=== PATIENT | female | born 1945 | race Caucasian/White ===

== ENCOUNTER 2017-05-19 10:44 | Emergency (ER) | payer MEDICARE, OTHER ==
[2017-05-19 11:48] LABS: BASOPHIL# 0.2 X 10^3uL (0.0-0.1); EOSINOPHILS 0.2 % (0.0-6.0); HEMATOCRIT 46.7 % (36.0-48.0); HEMOGLOBIN 15.9 g/dL (12.0-16.0); LYMPHOCYTES 6.9 % (20.0-40.0); LYMPHOCYTES# 0.8 X 10^3uL (0.8-3.8); MEAN CELL VOLUME 89.9 fL (80.0-100.0); MEAN CORPUS. HGB CONCENTRATION 34.1 g/dL (32.0-36.0); MEAN CORPUSCULAR HEMOGLOBIN 30.7 pg (29.0-35.0); MEAN PLATELET VOLUME 9.2 fL (7.4-10.4); MONOCYTES 5.8 % (2.0-10.0); MONOCYTES# 0.7 X 10^3uL (0.2-1.0); NEUTROPHILS 85.1 % (54.0-75.0); NEUTROPHILS# 10.2 X 10^3uL (2.6-6.7); RED BLOOD COUNT 5.19 X 10^6uL (4.20-6.10); WHITE BLOOD COUNT 11.9 X 10^3uL (3.9-10.7)
[2017-05-19 11:59] LABS: A/G RATIO 1.4; ALBUMIN 4.5 g/dL (3.5-5.0); BILIRUBIN, TOTAL 0.8 mg/dL (0.2-1.3); CALCIUM 9.5 mg/dL (8.4-10.2); POTASSIUM 4.3 mmol/L (3.5-5.1); TOTAL PROTEIN 7.7 g/dL (6.3-8.2)
--- NOTE | 2017-05-19 12:19 | CT REPORT ---
HISTORY: Fell, hit head, confusion COMPARISON: None. TECHNIQUE: Axial non-contrast images obtained from skull vertex through foramen magnum. Dose reduction technique was utilized. FINDINGS: There is moderate diffuse atrophy. Ventricular size is appropriate. There is mild patchy chronic whit e matter changes. There is no subdural or epidural collection, midline shift or mass effect. No evide nce for acute infarction. Skull is intact. Visualized sinuses are clear. IMPRESSION: Moderate diffuse atrophy. Mild patchy chronic white matter changes. No acute findings. Final Electronic Signature: This report was electronically signed by Marcel Paiz MD on 05/19/2017 12 :17 PM. mariaelena /
--- NOTE | 2017-05-19 12:38 | RADIOLOGY REPORT ---
HISTORY: Fall COMPARISON: None. FINDINGS: Two views of the right humerus obtained. There is no fracture. There is no lytic or sclerotic lesio n. There is no soft tissue swelling. There is normal alignment and mineralization. The soft tissues are unremarkable. The shoulder and elbow are grossly normal. IMPRESSION: Negative right humerus. Final Electronic Signature: This report was electronically signed by Marcel Paiz MD on 05/19/2017 12 :36 PM. mariaelena /
--- NOTE | 2017-05-19 12:38 | RADIOLOGY REPORT ---
HISTORY: Fall COMPARISON: None. FINDINGS: 1 view of the chest obtained. Heart size is normal for the portable technique. Mediastinal contours a re normal. There is mild left basilar atelectasis. No infiltrate, definite effusion or edema. No pneu mothorax. IMPRESSION: Mild left basilar atelectasis. No other acute findings noted. Final Electronic Signature: This report was electronically signed by Marcel Paiz MD on 05/19/2017 12 :35 PM. mariaelena /
--- NOTE | 2017-05-19 14:43 | ER NURSING DOCUMENTATION ---
Nurse's Notes [facility] Name:Yuni Dorman Age:71 yrs Sex:Female :1945 Arrival Date:05/19/2017 Time:10:44 Bed4 Private MD: Diagnosis:Chronic Dementia;Fall Presentation: 05/19 10:49 Presenting complaint: states: states that pt had a fall last night and st hit her right side. He put her back to bed at that time. This AM pt "collapsed (walking herself down the wall). had troubles getting up. pt only complaint is her right arm. witch has full ROM. Pt has advanced dementia. states that her mentation is baseline for her. Transition of care: Home. 10:49 Method Of Arrival: Private Vehicle st 10:49 Acuity: DIAMOND 3 st Triage Assessment: 11:00 General: Appears in no apparent distress, Behavior is cooperative. Pain: Unable to use st pain scale. when first asked about pain pt denied any. then pt stated her left arm hurt. pt states that there is pain in her right shoulder and right elbow on palpation pt has no trouble moving and using that limb. Neuro: Reports states that she is acting at her baseline for her dementia. . Cardiovascular: Capillary refill < 3 seconds Heart tones present. Respiratory: No deficits noted. GI: No deficits noted. Musculoskeletal: Parent/caregiver report the patient having rn wound care states that she had troubles getting off the floor today. Historical: - Allergies: No known drug Allergies; - Home Meds: 1. Aricept Oral 2. Aspirin Oral - PMHx: DEMENTIA; - Ebola Screening: : Patient denies exposure to infectious person. Patient denies travel to an Ebola-affected area in the 21 days before illness onset. . - Immunization history: Unable to Obtain. - Social history: Smoking status: Patient states was never smoker of tobacco. Patient/guardian denies using alcohol, marijuana. Screenin:04 Infectious Disease Risk None. Abuse screen: Denies threats or abuse. Denies injuries st from another. no reasons for suspicion noted. Nutritional screening: No deficits noted. Assessment: 12:35 General: pt resting quietly. pt still states her right arm hurts, pt declined pain meds st when offered. . 13:36 General: pt continues to rest quiwtly.. st 14:04 General: is concerned that she may fall again and that he might not be able to st get her up. . 14:10 General: pt walked without trouble. continues to express worries about her st falling, He also states that they are having troubles with showers. He feels comfortable with general care. We discussed the possibility of getting PT and OT involved at this point, . Vital Signs: 10:49 BP 126 / 76; Pulse 78; Resp 12; Temp 98.6(O); Pulse Ox 92% on R/A; Weight 63.5 kg (R); arc Height 5 ft. 8 in. (172.72 cm) (R); Pain 5/10; 11:35 Temp 98.3; st 12:59 BP 132 / 64 (auto/); st 13:00 Pulse 74; Pulse Ox 94% ; st 10:49 Body Mass Index 21.29 (63.50 kg, 172.72 cm) arc ED Course: 10:47 Patient arrived in ED. em3 10:49 Sue Bass, RN is Primary Nurse. st 10:[address] 11:05 Valuables Remains with patient Patient has correct armband on for positive st identification. Bed in low position. Side rails up X2. Adult w/ patient. Warm blanket given. 11:21 Sami Duckworth MD is Attending Physician. be 11:37 Assisted to bathroom. pt attempted to urinate but was unable to do so. st 11:40 Inserted peripheral IV: 20 gauge in right antecubital area and blood collected. arc 11:[address] mr 13:55 Straight cath inserted Specimen obtained. st 14:23 Anatoly Zuniga MD is Referral Physician. be Administered Medications: 12:22 Drug: NS 0.9% 1000 ml; Route: IV; Rate: bolus; Site: right antecubital; st 14:41 Follow up: IV Status: Completed infusion; IV Intake: 800ml st Point of Care Testing: Urine Dip: 13:58 pH: 5.0; ; Specific [place]: 1.025; Ketones: Negative; Glucose: Negative; Protein: cb Negative; Leukocytes: Negative; Nitrite: Negative ; Blood: Negative; Bilirubin: Negative ; Urobilinogen: Normal Intake: 14:41 IV: 800ml; Total: 800ml. st Outcome: 14:24 Discharge ordered by . be 14:40 Discharged to home ambulatory. st 14:40 Condition: improved 14:40 Discharge instructions given to patient, significant other, Instructed on discharge instructions, follow up and referral plans. 14:41 [address] ED[address] st 07 17:04 Discharge F/U Call: Spoke with: spouse with permission of patient. Did your discharge lc instructions answer all of your questions? yes Have you made a f/u appointment? yes Overall Care on a scale of 1-10 with 10 being the best care, you rate our care as: Other comments: DOING BETTER, GETTING HOME CARE HELP TOMORROW Signatures: Martina Durán, RN RN Sue Wharton, RN Carolina Barba RN RN Sami Moreira MD MD be Meiklejohn, Julien Jordana Banda, Schuyler Up mr
--- NOTE | 2017-05-19 14:45 | ER PHYSICIAN DOCUMENTATION ---
Physician Documentation [facility] Name:Yuni Dorman Age:71 yrs Sex:Female :1945 Arrival Date:05/19/2017 Time:10:44 Bed4 Private MD: Sami Ortega Disposition: 05/19/17 14:24 Discharged to Home/Self Care. Impression: Chronic Dementia, Fall. - Condition is Fair. - Discharge Instructions: DEMENTIA, Any Type, FALL PREVENTION. - Medical Reconciliation form form. - Follow up: Anatoly Zuniga MD; When: 2 - 3 days; Reason: Continuance of care. - Problem is chronic. - Symptoms are unchanged. HPI: 05/19 15:26 This 71 yrs old Female presents to ER via Private Vehicle with unknown be complaint. 15:26 Details of fall: The patient fell from an upright position, while walking, last night be got out of bed to use restroom. Onset: The symptom(s)/episode began/occurred acutely. Associated injuries: The patient sustained injury to the head, contusion, right arm. Associated signs and symptoms: Pertinent positives: memory problems, weakness, Pertinent negatives: chest pain, headache, vomiting, Loss of consciousness: the patient experienced no loss of consciousness. The patient has experienced similar episodes in the past, today's symptoms are similar, frequent falls. Historical: - Allergies: No known drug Allergies; - Home Meds: 1. Aricept Oral 2. Aspirin Oral - PMHx: DEMENTIA; - Ebola Screening: : Patient denies exposure to infectious person. Patient denies travel to an Ebola-affected area in the 21 days before illness onset. . - Immunization history: Unable to Obtain. - Social history: Smoking status: Patient states was never smoker of tobacco. Patient/guardian denies using alcohol, marijuana. ROS: 15:26 MS/extremity: Positive for pain, of the right arm, Negative for deformity. be 15:26 Neuro: Positive for headache, memory problems. 15:26 All other systems are negative. Exam: 15:26 Constitutional: This is a well developed, well nourished patient who is awake, alert, be and in no acute distress. Head/Face: Normocephalic, atraumatic. Eyes: Pupils equal round and reactive to light, extra-ocular motions intact. Lids and lashes normal. Conjunctiva and sclera are non-icteric and not injected. Cornea within normal limits. Periorbital areas with no swelling, redness, or edema. ENT: Nares patent. No nasal discharge, no septal abnormalities noted. Tympanic membranes are normal and external auditory canals are clear. Oropharynx with no redness, swelling, or masses, exudates, or evidence of obstruction, uvula midline. Mucous membranes moist. Neck: Trachea midline, no thyromegaly or masses palpated, and no cervical lymphadenopathy. Supple, full range of motion without nuchal rigidity, or vertebral point tenderness. No Meningismus. Chest/axilla: Normal chest wall appearance and motion. Nontender with no deformity. No lesions are appreciated. Cardiovascular: Regular rate and rhythm with a normal S1 and S2. No gallops, murmurs, or rubs. Normal PMI, no JVD. No pulse deficits. Respiratory: Lungs have equal breath sounds bilaterally, clear to auscultation and percussion. No rales, rhonchi or wheezes noted. No increased work of breathing, no retractions or nasal flaring. Abdomen/GI: Soft, non-tender, with normal bowel sounds. No distension or tympany. No guarding or rebound. No evidence of tenderness throughout. Back: No spinal tenderness. No costovertebral tenderness. Full range of motion. MS/ Extremity: Pulses equal, no cyanosis. Neurovascular intact. Full, normal range of motion, except right arm pain. Neuro: Awake and alert, GCS 15, siaoriented to person, place, time, and situation. Cranial nerves II-XII grossly intact. Motor strength 4/5 in all extremities. Sensory grossly intact. Cerebellar exam normal. Normal gait. 15:26 Psych: Behavior, mood, and affect are consistent with advanced dementia. be 15:33 Musculoskeletal/extremity: Exam is negative for acute changes. be 15:33 Neuro: Exam negative for acute changes, focal neuro deficits. Vital Signs: 10:49 BP 126 / 76; Pulse 78; Resp 12; Temp 98.6(O); Pulse Ox 92% on R/A; Weight 63.5 kg (R); arc Height 5 ft. 8 in. (172.72 cm) (R); Pain 5/10; 11:35 Temp 98.3; st 12:59 BP 132 / 64 (auto/); st 13:00 Pulse 74; Pulse Ox 94% ; st 10:49 Body Mass Index 21.29 (63.50 kg, 172.72 cm) arc MDM: 11:45 Patient medically screened. be 15:26 Differential diagnosis: abrasion, closed head injury, fracture. Data reviewed: vital be signs, nurses notes, lab test result(s), radiologic studies, and as a result, I will discharge patient, administer IV fluids, NS bolus, Ordered out-patient PT/OT and home safety assessment. 05/19 12:09 Order name: LACTATE; Complete Time: 13:17 EDMS 05/19 12:55 Interpretation: Normal. be 05/19 12:10 Order name: COMPREHENSIVE METABOLIC PANEL; Complete Time: 13:17 EDMS 05/19 12:55 Interpretation: Normal Except: mild renal insufficiency. be 05/19 12:11 Order name: CBC AUTO DIF, MDIF/RMOR IF IND; Complete Time: 13:17 EDMS 05/19 12:56 Interpretation: Normal Except: Leukocytosis with left shift and polycythemia. be 05/19 12:25 Order name: CAT SCAN; HEAD W/O CON [id number]; Complete Time: 13:17 EDMS 05/19 13:19 Interpretation: Normal Except: atrophy. be 05/19 12:39 Order name: CHEST; SINGLE VIEW [id number]; Complete Time: 13:17 EDMS 05/19 13:18 Interpretation: Normal Except: atelectasis. be 05/19 12:43 Order name: [place] [id number]; Complete Time: 13:17 EDMS 05/19 15:26 Interpretation: Normal. be Dispensed Medications: 12:22 Drug: NS 0.9% 1000 ml; Route: IV; Rate: bolus; Site: right antecubital; st 14:41 Follow up: IV Status: Completed infusion; IV Intake: 800ml st Point of Care Testing: Urine Dip: 13:58 pH: 5.0; ; Specific [place]: 1.025; Ketones: Negative; Glucose: Negative; Protein: cb Negative; Leukocytes: Negative; Nitrite: Negative ; Blood: Negative; Bilirubin: Negative ; Urobilinogen: Normal Signatures: Sue Bass RN RN st Elliott, Brian, MD MD be
== END 2017-05-19 14:42 | disposition home or self-care (01) ==
LOC: ER 10:44
DX: F03.90 Unspecified dementia, unspecified severity, without behavioral disturbance, psychotic disturbance, mood disturbance, and anxiety (principal); S40.021A Contusion of right upper arm, initial encounter; R51 Headache; W18.30XA Fall on same level, unspecified, initial encounter; Y92.019 Unspecified place in single-family (private) house as the place of occurrence of the external cause; Y93.01 Activity, walking, marching and hiking; R53.1 Weakness; R29.6 Repeated falls; Z79.82 Long term (current) use of aspirin; Z79.899 Other long term (current) drug therapy; D72.829 Elevated white blood cell count, unspecified; D75.1 Secondary polycythemia; R91.8 Other nonspecific abnormal finding of lung field; N18.9 Chronic kidney disease, unspecified
CPT/HCPCS: 51701; 70450; 71010; 80053; 83605; 85025; 96360; 96361; 99284